=== PATIENT | female | born 1965 | race Caucasian/White ===

== ENCOUNTER → 2018-11-30 | Outpatient (CLI) | payer OTHER ==
--- NOTE | 2018-11-30 18:22 | Diagnostic Imaging Report ---
EXAMINATION: Chest (PA and lateral). CLINICAL INDICATION: 53-year-old female, cough for three weeks. COMPARISON: None. FINDINGS: Heart size and mediastinal contours are unremarkable. There is no identified pneumothorax. There is no pleural effusion. There is no focal airspace consolidation. IMPRESSION: No identified acute cardiopulmonary abnormality. Dictated by: Dictated on workstation # [id number]
== END ==
LOC: RAD FS 11:30
PROVIDERS: ATTEND Nurse Practitioner Family
DX: R05 Cough (principal)
CPT/HCPCS: 71046

== ENCOUNTER 2019-03-14 06:59 | Day surgery (SDC) | payer OTHER ==
[~2019-03-14] VITALS: Ht 167 cm; Wt 100.9 kg
[2019-03-14] VITALS (10 sets, daily range): BP systolic 102–135; BP diastolic 46–80
[2019-03-14 07:38] LABS: ABSOLUTE RETIC # 80 10e9/L (24-90); BASOPHILS % (AUTO) 0 % (0-10); EOSINOPHILS # (AUTO) 0.2 10^3/uL (0.0-0.3); EOSINOPHILS % (AUTO) 1 % (0-10); HEMATOCRIT 41 % (35-52); HEMOGLOBIN 13.4 G/DL (11.5-16.0); LYMPHOCYTES % (AUTO) 17 % (12-44); MEAN CORPUSCULAR HEMOGLOBIN 29 PG (25-34); MEAN CORPUSCULAR HGB CONC 33 G/DL (32-36); MEAN CORPUSCULAR VOLUME 90 FL (80-99); MEAN PLATELET VOLUME 9.5 FL (7.4-10.4); MONOCYTES % (AUTO) 8 % (0-12); NEUTROPHILS # (AUTO) 8.5 X 10^3 (1.8-7.8); NEUTROPHILS % (AUTO) 73 % (42-75); PLATELET COUNT 492 10^3/uL (130-400); RED CELL DISTRIBUTION WIDTH 13.7 % (10.0-14.5); RETICULOCYTE % 1.76 % (0.50-2.40); WHITE BLOOD COUNT 11.6 10^3/uL (4.3-11.0)
[2019-03-14 07:39] LABS: SMEAR SCAN COMMENT NO
[2019-03-14 07:53] LABS: INR 0.9 (0.8-1.4); PROTHROMBIN TIME PATIENT 12.7 SEC (12.2-14.7)
[2019-03-14] MEDS ORDERED: ROSU10TA28 PO (07:57)
[2019-03-14] MEDS ORDERED: DILT120T11 PO (07:57)
[2019-03-14] MEDS ORDERED: UBID200C16 PO (07:57)
[2019-03-14] MEDS ORDERED: ISOS20TA73 PO (07:57)
[2019-03-14] MEDS ORDERED: CHOL200041 PO (07:57)
[2019-03-14] MEDS ORDERED: KRIL1CAP18 PO (07:57)
[2019-03-14] MEDS ORDERED: MAGN250T13 PO (07:57)
[2019-03-14] MEDS ORDERED: PANT40TA3 PO (07:57)
[2019-03-14] MEDS ORDERED: MULT-878 PO (07:57)
[2019-03-14] MEDS ORDERED: VIT1CAPS49 PO (08:00)
[2019-03-14] MEDS ORDERED: ASCO1TAB39 PO (08:01)
[2019-03-14] MEDS ORDERED: NS IV 1000 ML 1,000 ML IV STA (08:07)
[2019-03-14] MEDS ORDERED: LIDOCAINE 1% INJ 20 ML 20 ML VIAL INJ ONE (08:15)
[2019-03-14] MEDS ORDERED: fentaNYL INJECTION 100 MCG/2 ML AMP IVP ONE (08:15)
[2019-03-14] MEDS ORDERED: MIDAZOLAM 2 MG/2 ML (VERSED) VIAL IVP ONE (08:15)
[2019-03-14 08:25] LABS: NEUTROPHILS % (MANUAL) 68 %
[2019-03-14 08:26] LABS: EOSINOPHILS % (MANUAL) 1 %; LYMPHOCYTES % (MANUAL) 22 %; MONOCYTES % (MANUAL) 9 %; RBC MORPH NORMAL; TOXIC GRANULATION/VACUOLAZATIO 3+
--- NOTE | 2019-03-14 10:07 | Pre-Op Note & Conscious Sedat ---
Pre-Operative Progress Note H&P Reviewed The H&P was reviewed, patient examined and no changes noted. Date H&P Reviewed: Mar 14, 2019 Time H&P Reviewed: 08:00 Pre-Op Diagnosis: elevated platelets Conscious Sedation Pre-Proced Time 08:00 ASA Score 2 For ASA 3 and 4: Consider anesthesia and medical clearance. Also, for patients with a history of failed moderate sedation consider anesthesia. Airway Lungs Heart ASA score ASA 1: a normal healthy patient ASA 2: a patient with a mild systemic disease (mid diabetes, controlled hypertension, obesity ASA 3: a patient with a severe systemic disease that limits activity (angina, COPD, prior Myocardial infarction) ASA 4: a patient with an incapacitating disease that is a constant threat to life (CHF, renal failure) ASA 5: a moribund patient not expected to survive 24 hrs. (ruptured aneurysm) ASA 6: a declared brain- patient whose organs are being harvested. For emergent operations, add the letter E after the classification Mallampati Classification Grade 2 Sedation Plan Analgesia, Amnesia, Plan communicated to team members, Discussed options with p atient/fam, Discussed risks with patient/fam The patient is an appropriate candidate to undergo the planned procedure, sedation, and anesthesia. The patient immediately re-assessed prior to indication. ENRIQUE POWER MD Mar 14, 2019 10:07 POS
--- NOTE | 2019-03-14 10:11 | Diagnostic Imaging Report ---
INDICATION: Elevated platelet count. FINDINGS: Patient was brought to the CT suite, placed on the table in the prone position. Axial imaging through the pelvis was performed to evaluate appropriate entry site. The procedure was performed utilizing conscious sedation with radiology nursing and constant patient monitoring. Patient was administered a total of 1 mg of Versed intravenously and 100 mcg of fentanyl intravenously. Total procedure time was 7 minutes. The skin of the posterior pelvis was prepped and draped in the usual sterile fashion. Small amount of 1% lidocaine was utilized for local anesthesia. Bone marrow biopsy needle was advanced and placed with its tip against the posterior cortex of the right iliac bone. The needle was advanced through the cortex utilizing the bone marrow drill. Two bone marrow aspirates were then obtained. Next, the bone marrow drill was utilized to obtain a core biopsy of the bone marrow. Needle was removed and hemostasis was obtained using manual compression. Patient tolerated the procedure well and left the department in stable condition. IMPRESSION: Successful CT-guided bone marrow aspiration and biopsy, utilizing conscious sedation. Dictated by: Dictated on workstation # [id number]
[2019-03-14] MEDS ORDERED: HYDROcodone/APAP 5 MG/325 MG (LORTAB) TAB PO PRN (10:15)
[2019-03-14] MEDS ORDERED: MIDAZOLAM 2 MG/2 ML (VERSED) VIAL ONE (10:19)
--- OUTSIDE RECORDS SUMMARY | 2019-04-08 19:15 | XMS REPORT | Continuity of Care Document ---
Author Organization Unknown Address Unknown Phone Unavailable Allergies Active Description Code Type Severity Reaction Onset Reported/Identified Relationship to Patient Clinical Status Yes amlodipine [id number] Drug Allerg y Severe N/A 03/14/2019 Yes No Known Drug Allergies [id number] Drug Allergy Unknown N/A 03/14/2019 Medications There is no data. Problems Date Dx Coded Attending Type Code Diagnosis Diagnosed By 12/27/2018 PEGGY DIXON [employer] SAL[employer] REPRESENTATIVE Ot R0 5 COUGH 02/22/2019 PEGGY DIXON APRN Ot R0 5 COUGH 02/28/2019 AAKASH ARRIETA MD Ot D47.3 ESSENTIAL (HEMORRHAGIC) THROMBOCYTHEMIA 02/28/2019 AAKASH ARRIETA MD Ot E78.00 PURE HYPERCHOLESTEROLEMIA, UNSPECIFIED 02/28/2019 AAKASH ARRIETA MD Ot I10 ESSENTIAL (PRIMARY) HYPERTENSION 02/28/2019 AAKASH ARRIETA MD Ot R79.89 OTHER SPECIFIED ABNORMAL FINDINGS OF BLO Procedures There is no data. Results Test Result Range CBC - 11/30/18 11:38 WHITE BLOOD CELL COUNT 13.0 Thousand/uL 3.8-10.8 RED BLOOD CELL COUNT 4.87 Million/uL 3.8 0-5.10 HEMOGLOBIN 14.6 g/dL 11.7-15.5 HEMATOCRIT 44.3 % 35.0-45.0 MCV 91.0 fL 80.0-100.0 MCH 30.0 pg 27.0-33.0 MCHC 33.0 g/dL 32.0-36.0 RDW 12.8 % 11.0-15.0 PLATELET COUNT 543 Thousand/uL 140-400 MPV 9.7 fL 7.5-12.5 ABSOLUTE NEUTROPHILS 9802 cells/uL 1500- 7800 ABSOLUTE LYMPHOCYTES 2054 cells/uL 850-3 900 ABSOLUTE MONOCYTES 923 cells/uL 200-950 ABSOLUTE EOSINOPHILS 182 cells/uL 15-500 ABSOLUTE BASOPHILS 39 cells/uL 0-200 NEUTROPHILS 75.4 % NRG LYMPHOCYTES 15.8 % NRG MONOCYTES 7.1 % NRG EOSINOPHILS 1.4 % NRG BASOPHILS 0.3 % NRG CBC w/MANUAL DIFF - 12/25/18 13:13 WHITE BLOOD CELL COUNT 7.1 Thousand/uL 3 .8-10.8 RED BLOOD CELL COUNT 4.68 Million/uL 3.8 0-5.10 HEMOGLOBIN 13.8 g/dL 11.7-15.5 HEMATOCRIT 42.7 % 35.0-45.0 MCV 91.2 fL 80.0-100.0 MCH 29.5 pg 27.0-33.0 MCHC 32.3 g/dL 32.0-36.0 RDW 13.1 % 11.0-15.0 PLATELET COUNT 604 Thousand/uL 140-400 MPV 9.7 fL 7.5-12.5 ABSOLUTE NEUTROPHILS 4004 cells/uL 1500- 7800 ABSOLUTE MONOCYTES 561 cells/uL 200-950 ABSOLUTE EOSINOPHILS 213 cells/uL 15-500 ABSOLUTE BASOPHILS 71 cells/uL 0-200 NEUTROPHILS 56.4 % NRG LYMPHOCYTES 27.7 % NRG MONOCYTES 7.9 % NRG EOSINOPHILS 3.0 % NRG BASOPHILS 1.0 % NRG ABSOLUTE BAND NEUTROPHILS 284 cells/uL 0 -750 ABSOLUTE LYMPHOCYTES 1967 cells/uL 850-3 900 BAND NEUTROPHILS 4.0 % NRG PLATELET ESTIMATION INCREASED ADEQUATE Blood CBC with ordered manual differenti al panel - 03/14/19 07:25 Blood leukocytes automated count (number/volume) 11.6 10*3/uL 4.3-11.0 Blood erythrocytes automated count (number/volume) 4.56 10*6/uL 4.35-5.85 Venous blood hemoglobin measurement (mass/volume) 13.4 g/dL 11.5-16.0 Blood hematocrit (volume fraction) 41 % 35-52 Automated erythrocyte mean corpuscular volume 90 [ foz_us] 80-99 Automated erythrocyte mean corpuscular h emoglobin (mass per erythrocyte) 29 pg 25-34 Automated erythrocyte mean corpuscular h emoglobin concentration measurement (mass/volume) 33 g/dL 32-36 Automated erythrocyte distribution width ratio 13. 7 % 10.0- 14.5 Automated blood platelet count (count/volume) 492 10*3/uL 130-400 Automated blood platelet mean volume measurement 9.5 [foz_us] 7.4-10.4 Automated blood neutrophils/100 leukocytes 73 % 42-75 Automated blood lymphocytes/100 leukocytes 17 % 12-44 Blood monocytes/100 leukocytes 9 % NRG Automated blood eosinophils/100 leukocytes 1 % 0-10 Automated blood basophils/100 leukocytes 0 % 0-10 Blood neutrophils automated count (number/volume) 8.5 10*3 1.8-7.8 Blood lymphocytes automated count (number/volume) 2.0 10*3 1.0-4.0 Blood monocytes automated count (number/volume) 1. 0 10*3 0.0-1.0 Automated eosinophil count 0.2 10*3/uL 0 .0-0.3 Automated blood basophil count (count/volume) 0.0 10*3/uL 0.0-0.1 Manual blood segmented neutrophils/100 leukocytes 68 % NRG Manual blood lymphocytes/100 leukocytes 22 % NRG Manual eosinophils/100 leukocytes in nose 1 % NRG Blood erythrocyte morphology finding identification NORMAL NRG Blood toxic granules detection by light microscopy 3+ NRG Blood blood smear finding identification by light micr oscopy NO NRG Automated reticulocyte percentage - 1207/28 07:25 Blood reticulocytes count (number/volume) 80 10*9/ L 24-90 Blood reticulocytes/100 erythrocytes 1.76 % 0.50-2.40 PT panel in platelet poor plasma by coag ulation assay - 03/14/19 07:25 Prothrombin time (PT) in platelet poor plasma by coagu lation assay 12.7 s 12.2-14.7 INR in platelet poor plasma or blood by coagulation as say 0.9 0.8-1.4 Activated partial thromboplastin time (a PTT) in platelet poor plasma bycoagulation assay - 03/14/19 07:25 Activated partial thromboplastin time (a PTT) in platelet poor plasma bycoagulation assay 32 s 24-35 Encounters ACCT No. Visit Date/Time Discharge Status Pt. Type Provider Facility Loc./Unit Complaint [id number] 11/30/2018 09:40:00 11/30/2018 23:59: 59 CLS Outpatient PEGGY DIXON [facility] [id number] 12/25/2018 13:40:00 Document Registration [id number] 11/30/2018 09:40:00 Document Registration [id number] 03/29/2019 13:17:00 019 23:59:59 CLS Outpatient MEENAKSHI CAMEJO, AAKASH [facility] ONC [id number] 03/14/2019 06:59:00 019 12:10:00 DIS Outpatient MEENAKSHI CAMEJO, AAKASH [facility] RAD ELEVATED PLATELET COUNT [id number] 11/30/2018 11:30:00 019 23:59:59 CLS Outpatient PEGGY DIXON APRN [facility] RAD FS R05
== END 2019-03-14 12:10 | disposition home or self-care (01) ==
LOC: RAD 06:59 → SDC 10:07 → RAD 12:10
PROVIDERS: ATTEND Internal Medicine Hematology & Oncology
DX: D47.3 Essential (hemorrhagic) thrombocythemia (principal); M19.90 Unspecified osteoarthritis, unspecified site; I10 Essential (primary) hypertension; Z79.899 Other long term (current) drug therapy; Z88.8 Allergy status to other drugs, medicaments and biological substances; Z90.89 Acquired absence of other organs; Z90.49 Acquired absence of other specified parts of digestive tract; Z90.10 Acquired absence of unspecified breast and nipple; Z87.891 Personal history of nicotine dependence; Z80.3 Family history of malignant neoplasm of breast; Z82.49 Family history of ischemic heart disease and other diseases of the circulatory system; Z83.3 Family history of diabetes mellitus; Z80.6 Family history of leukemia
CPT/HCPCS: 36415; 38222; 77012; 85007; 85027; 85045; 85610; 85730; 88184; 88185; 88305; 88311; 88313; 99156

== ENCOUNTER 2019-03-29 13:17 | Outpatient (RCR) | payer OTHER ==
[2019-02-22 14:46] LABS: ABSOLUTE RETIC # 92 10e9/L (24-90); BASOPHILS % (AUTO) 0 % (0-10); EOSINOPHILS # (AUTO) 0.1 10^3/uL (0.0-0.3); EOSINOPHILS % (AUTO) 1 % (0-10); HEMATOCRIT 42 % (35-52); HEMOGLOBIN 13.9 G/DL (11.5-16.0); LYMPHOCYTES # (AUTO) 2.4 X 10^3 (1.0-4.0); LYMPHOCYTES % (AUTO) 26 % (12-44); MEAN CORPUSCULAR HEMOGLOBIN 29 PG (25-34); MEAN CORPUSCULAR HGB CONC 33 G/DL (32-36); MEAN CORPUSCULAR VOLUME 89 FL (80-99); MEAN PLATELET VOLUME 9.3 FL (7.4-10.4); MONOCYTES # (AUTO) 0.7 X 10^3 (0.0-1.0); MONOCYTES % (AUTO) 7 % (0-12); NEUTROPHILS # (AUTO) 6.1 X 10^3 (1.8-7.8); NEUTROPHILS % (AUTO) 65 % (42-75); PLATELET COUNT 527 10^3/uL (130-400); RED CELL DISTRIBUTION WIDTH 14.5 % (10.0-14.5); RETICULOCYTE % 1.94 % (0.50-2.40); WHITE BLOOD COUNT 9.3 10^3/uL (4.3-11.0)
[2019-02-22 14:58] LABS: INR 0.9 (0.8-1.4); PROTHROMBIN TIME PATIENT 12.7 SEC (12.2-14.7)
[2019-02-22 15:01] LABS: URIC ACID 7.4 MG/DL (2.6-7.2)
[2019-02-22 15:17] LABS: LYMPHOCYTES % (MANUAL) 27 %; MONOCYTES % (MANUAL) 4 %; NEUTROPHILS % (MANUAL) 69 %; POIKILOCYTOSIS SLIGHT; SPHEROCYTES SLIGHT
[2019-02-22 15:18] LABS: TOXIC GRANULATION/VACUOLAZATIO 2+
[~2019-03-29 13:17] MED LIST: ASCO1TAB39 PO; CHOL200041 PO; DILT120T11 PO; ISOS20TA73 PO; KRIL1CAP18 PO; MAGN250T13 PO; MULT-878 PO; PANT40TA3 PO; ROSU10TA28 PO; UBID200C16 PO; VIT1CAPS49 PO
== END 2019-05-23 | disposition home or self-care (01) ==
LOC: ONC 13:17
PROVIDERS: ATTEND Internal Medicine Hematology & Oncology
DX: D47.3 Essential (hemorrhagic) thrombocythemia (principal); I10 Essential (primary) hypertension; E78.00 Pure hypercholesterolemia, unspecified; R79.89 Other specified abnormal findings of blood chemistry
CPT/HCPCS: 36415; 81206; 81270; 82668; 82728; 83540; 83615; 84550; 85007; 85027; 85045; 85610; 85730; 99213; 99214

== ENCOUNTER 2019-06-18 11:29 | Emergency (ER) | payer OTHER ==
[~2019-06-18] VITALS: Ht 160 cm; Wt 104.0 kg
[2019-06-18 11:56] LABS: BASOPHILS % (AUTO) 0 % (0-10); EOSINOPHILS # (AUTO) 0.2 10^3/uL (0.0-0.3); EOSINOPHILS % (AUTO) 2 % (0-10); HEMATOCRIT 38 % (35-52); HEMOGLOBIN 12.5 G/DL (11.5-16.0); LYMPHOCYTES # (AUTO) 1.7 X 10^3 (1.0-4.0); LYMPHOCYTES % (AUTO) 18 % (12-44); MEAN CORPUSCULAR HEMOGLOBIN 30 PG (25-34); MEAN CORPUSCULAR HGB CONC 33 G/DL (32-36); MEAN CORPUSCULAR VOLUME 91 FL (80-99); MEAN PLATELET VOLUME 9.3 FL (7.4-10.4); MONOCYTES # (AUTO) 0.7 X 10^3 (0.0-1.0); MONOCYTES % (AUTO) 7 % (0-12); NEUTROPHILS # (AUTO) 6.9 X 10^3 (1.8-7.8); NEUTROPHILS % (AUTO) 73 % (42-75); PLATELET COUNT 408 10^3/uL (130-400); WHITE BLOOD COUNT 9.5 10^3/uL (4.3-11.0)
[2019-06-18 12:11] LABS: FIBRIN DEGRADATION PRODUCTS <= 0.27 UG/ML (0.00-0.49); INR 0.9 (0.8-1.4); PARTIAL THROMBOPLASTIN TIME 29 SEC (24-35); PROTHROMBIN TIME PATIENT 12.8 SEC (12.2-14.7)
[2019-06-18 12:17] LABS: ALANINE AMINOTRANSFERASE 29 U/L (0-55); ALBUMIN 4.3 GM/DL (3.2-4.5); ALKALINE PHOSPHATASE 78 U/L (40-136); BILIRUBIN,TOTAL 0.2 MG/DL (0.1-1.0); BUN/CREATININE RATIO 26; CARBON DIOXIDE 25 MMOL/L (21-32); CHLORIDE 105 MMOL/L (98-107); CREATININE SERUM 0.77 MG/DL (0.60-1.30); GFR ESTIMATED > 60; GLUCOSE 132 MG/DL (70-105); POTASSIUM 4.1 MMOL/L (3.6-5.0); SODIUM 138 MMOL/L (135-145); TOTAL PROTEIN 6.9 GM/DL (6.4-8.2)
--- NOTE | 2019-06-18 12:40 | Diagnostic Imaging Report ---
INDICATION: Increasing right thigh pain and tightness. 3 month post bone biopsy TECHNIQUE: 2 views of the right hip. CORRELATION STUDY: None FINDINGS: Images of the hip demonstrate no evidence for acute fracture. Alignment is anatomic. The femoral head acetabular relationship is unremarkable. The bony trabecular pattern is intact. IMPRESSION: 1. Negative for acute bony abnormality of the right hip. Dictated by: Dictated on workstation # [id number]
--- NOTE | 2019-06-18 13:39 | Diagnostic Imaging Report ---
PROCEDURE: US right lower extremity venous. TECHNIQUE: Multiple real-time grayscale images were obtained over the right lower extremity in various projections. Additional spectral analysis and color Doppler duplex images were also obtained. INDICATION: Right leg pain. FINDINGS: There is no evidence of right lower extremity DVT. Right lower extremity deep venous system shows normal compressibility with normal response to augmentation and Valsalva. No fluid collection or mass is detected. IMPRESSION: No evidence of right lower extremity DVT. Dictated by: Dictated on workstation # [id number]
--- NOTE | 2019-06-18 13:42 | ED Lower Extremity ---
General Chief Complaint: Lower Extremity Stated Complaint: LEG PAIN Nursing Triage Note: ARRIVED VIA EMS FROM WORK WITH COPLAINTS OF LEFT LEG PAIN STARTING TODAY. 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 Nursing Sepsis Screen: No Definite Risk Source: patient Exam Limitations: no limitations History of Present Illness Date Seen by Provider: Jun 18, 2019 Time Seen by Provider: 11:36 Initial Comments 53-year-old female who was brought to the emergency room by [facility] for right inner thigh pain that started last night. She was at work today where she is an employee for [employer] [facility] [facility] [employer] and started having excruciating right inner thigh pain. She reports that the pain did start last night but increased throughout the day. She is being evaluated for elevated platelet counts by Dr. Corbett. She received 200 g of fentanyl and 25 mg of Phenergan IV in route which has controlled her pain. She also reports that her arthritis has been flaring up and her meloxicam is no longer working. There is no redness, swelling, deformity noted. Onset: yesterday Pain/Injury Location: right thigh Method of Injury: unknown Modifying Factors: Worse With Movement Allergies and Home Medications Allergies Coded Allergies: amlodipine (Verified Allergy, Severe, 03/14/19) bronchiospasms Home Medications Ascorbic Acid/Vitamin E/Biotin 1 Each Tab.chew, 1 EACH PO DAILY, (Reported) Cholecalciferol (Vitamin D3) 2,000 Unit Tablet, 125 MCG PO DAILY, (Reported) Diltiazem HCl 120 Mg Tablet, 240 MG PO DAILY, (Reported) Hydrocodone/Acetaminophen 1 Each Tablet, 1 TAB PO Q4-6HR Prescribed by: RISHABH RAND on 06/18/19 1356 Isosorbide Mononitrate 20 Mg Tablet, 30 MG PO DAILY, (Reported) Krill/Om-3/Dha/Epa/Phospho/Ast 1 Each Capsule, 1 EACH PO DAILY, (Reported) Magnesium Oxide 250 Mg Tablet, 250 MG PO DAILY, (Reported) Multivitamins-Min/FA/Ginkgo 1 Each Tablet, 1 EACH PO DAILY, (Reported) Pantoprazole Sodium 40 Mg Tablet.dr, 40 MG PO DAILY, (Reported) Rosuvastatin Calcium 10 Mg Tablet, 10 MG PO DAILY, (Reported) Ubidecarenone 200 Mg Capsule, 200 MG PO DAILY, (Reported) Vit E/Zn/Lut/Lyco/Bilber/Hb261 1 Each Capsule, 400 UNITS PO DAILY, (Reported) Patient Home Medication List Home Medication List Reviewed: Yes Review of Systems Constitutional: see HPI; No chills, No fever Musculoskeletal: see HPI, muscle pain (right inner thigh pain) All Other Systems Reviewed Negative Unless Noted: Yes Past Wrgcgcb-Jitwyv-Qgsagz Hx Past Med/Social Hx: Reviewed Nursing Past Med/Soc Hx Patient Social History Alcohol Use: Rarely Uses Recreational Drug Use: No Smoking Status: Former Smoker Recent Foreign Travel: No Contact w/Someone Who Travel: No Recent Infectious Disease Expo: No Recent Hopitalizations: No Past Medical History Surgeries: Yes (UTERINE ABLASION, LUMPECTOMY) Gallbladder Respiratory: No Cardiac: Yes Hypertension Neurological: Yes (BELLS PALSY) Gastrointestinal: No Musculoskeletal: Yes Rheumatoid Arthritis Endocrine: No Cancer: No Psychosocial: No Blood Disorders: Yes (HIGH PLATELETS) Family Medical History Reviewed Nursing Family Hx Physical Exam Vital Signs Vital Signs - First Documented 06/18/19 11:29 Temp 37.0 Pulse 87 Resp 16 B/P (MAP) 150/79 (102) Pulse Ox 96 O2 Delivery Room Air Capillary Refill : Less Than 3 Seconds Height, Weight, BMI Height: '" Weight: lbs. oz. kg; 40.00 BMI Method: General Appearance: WD/WN, no apparent distress Cardiovascular: normal peripheral pulses, regular rate, rhythm, no edema, no gallop, no JVD, no murmur Respiratory: chest non-tender, lungs clear, normal breath sounds, no respiratory distress, no accessory muscle use Gastrointestinal: normal bowel sounds, non tender, soft, no organomegaly, no pulsatile mass Legs: right leg pain, right leg soft tissue tenderness, right leg other (to the right inner thigh) Neurologic/Tendon: normal sensation, normal motor functions, normal tendon functions, responds to pain, no evidence tendon injury, other (normal distal pulses present and capillary refill normal.) Neurologic/Psychiatric: alert, normal mood/affect, oriented x 3 Skin: normal color, warm/dry Progress/Results/Core Measures Results/Orders Lab Results Laboratory Tests Test 06/18/19 11:48 Range/Units White Blood Count 9.5 4.3-11.0 10^3/uL Red Blood Count 4.15 L 4.35-5.85 10^6/uL Hemoglobin 12.5 11.5-16.0 G/DL Hematocrit 38 35-52 % Mean Corpuscular Volume 91 80-99 FL Mean Corpuscular Hemoglobin 30 25-34 PG Mean Corpuscular Hemoglobin Concent 33 32-36 G/DL Red Cell Distribution Width 14.0 10.0-14.5 % Platelet Count 408 H 130-400 10^3/uL Mean Platelet Volume 9.3 7.4-10.4 FL Neutrophils (%) (Auto) 73 42-75 % Lymphocytes (%) (Auto) 18 12-44 % Monocytes (%) (Auto) 7 0-12 % Eosinophils (%) (Auto) 2 0-10 % Basophils (%) (Auto) 0 0-10 % Neutrophils # (Auto) 6.9 1.8-7.8 X 10^3 Lymphocytes # (Auto) 1.7 1.0-4.0 X 10^3 Monocytes # (Auto) 0.7 0.0-1.0 X 10^3 Eosinophils # (Auto) 0.2 0.0-0.3 10^3/uL Basophils # (Auto) 0.0 0.0-0.1 10^3/uL Prothrombin Time 12.8 12.2-14.7 SEC INR Comment 0.9 0.8-1.4 Activated Partial Thromboplast Time 29 24-35 SEC D-Dimer <= 0.27 0.00-0.49 UG/ML Sodium Level 138 135-145 MMOL/L Potassium Level 4.1 3.6-5.0 MMOL/L Chloride Level 105 98-107 MMOL/L Carbon Dioxide Level 25 21-32 MMOL/L Anion Gap 8 5-14 MMOL/L Blood Urea Nitrogen 20 H 7-18 MG/DL Creatinine 0.77 0.60-1.30 MG/DL Estimat Glomerular Filtration Rate > 60 BUN/Creatinine Ratio 26 Glucose Level 132 H 70-105 MG/DL Calcium Level 9.0 8.5-10.1 MG/DL Corrected Calcium 8.8 8.5-10.1 MG/DL Total Bilirubin 0.2 0.1-1.0 MG/DL Aspartate Amino Transf (AST/SGOT) 21 5-34 U/L Alanine Aminotransferase (ALT/SGPT) 29 0-55 U/L Alkaline Phosphatase 78 40-136 U/L Total Protein 6.9 6.4-8.2 GM/DL Albumin 4.3 3.2-4.5 GM/DL My Orders Orders - RISHABH RAND Comprehensive Metabolic Panel (06/18/19 11:35) Cbc With Automated Diff (06/18/19 11:35) Protime With Inr (06/18/19 11:35) Partial Thromboplastin Time (06/18/19 11:35) Fibrin Degradation Products (06/18/19 11:35) Us Venous Lower Ext Rt (06/18/19 11:35) Ed Iv/Invasive Line Start (06/18/19 11:35) Monitor-Rhythm Ecg Trace Only (06/18/19 11:35) Hip, Right, 2 Views (06/18/19 ) Vital Signs/I&O 06/18/19 11:29 Temp 37.0 Pulse 87 Resp 16 B/P (MAP) 150/79 (102) Pulse Ox 96 O2 Delivery Room Air Blood Pressure Mean: 102 Progress Progress Note : Time: 13:52 Progress Note I have seen and evaluated the patient. I've informed her of her laboratory and imaging studies. She agrees with plan of care, plans for discharge, return precautions were given. Departure Impression Primary Impression: Acute thigh pain Additional Impression: Arthritis Disposition: 01 HOME, SELF-CARE Condition: Stable/Unchanged Departure-Patient Inst. Decision time for Depature: 13:52 Referrals: APRIL DIXON APRN (PCP) Primary Care Physician Patient Instructions: Acute Pain, Adult Add. Discharge Instructions: You may alternate ice and heat to the sore areas. Tylenol Motrin as needed for pain relief. For pain unrelieved by Tylenol Motrin you may use the hydrocodone as prescribed. Call today to schedule a close follow-up appointment with April Dixon at [facility]. Return back to the emergency room for worsening symptoms or concerns as needed. All discharge instructions reviewed with patient and/or family. Voiced understanding. Scripts Hydrocodone/Acetaminophen (Hydrocodone/Acetaminophen 5 MG/325 MG TAB) 1 Each Tablet 1 TAB PO Q4-6HR for Pain MDD 10 TABS for 7 Days, #20 TAB Prov: RISHABH RAND 06/18/19 RISHABH RAND Jun 18, 2019 13:42
[2019-06-18] MEDS ORDERED: HYDR-4226 PO (13:56)
[2019-06-18 14:05] VITALS: BP 107/65
--- OUTSIDE RECORDS SUMMARY | 2019-06-20 21:02 | XMS REPORT | Continuity of Care Document ---
Author Organization Unknown Address Unknown Phone Unavailable Allergies Active Description Code Type Severity Reaction Onset Reported/Identified Relationship to Patient Clinical Status Yes amlodipine [id number] Drug Allerg y Severe N/A 03/14/2019 Yes No Known Drug Allergies [id number] Drug Allergy Unknown N/A 03/14/2019 Medications There is no data. Problems Date Dx Coded Attending Type Code Diagnosis Diagnosed By 12/27/2018 PEGGY DIXON APRN Ot R0 5 COUGH 02/22/2019 PEGGY DIXON APRN Ot R0 5 COUGH 02/28/2019 AAKASH ARRIETA MD, Ot D47.3 ESSENTIAL (HEMORRHAGIC) THROMBOCYTHEMIA 02/28/2019 AAKASH ARRIETA MD Ot E78.00 PURE HYPERCHOLESTEROLEMIA, UNSPECIFIED 02/28/2019 AAKASH ARRIETA MD Ot I10 ESSENTIAL (PRIMARY) HYPERTENSION 02/28/2019 AAKASH ARRIETA MD Ot R79.89 OTHER SPECIFIED ABNORMAL FINDINGS OF BLO 03/14/2019 AAKASH ARRIETA MD, Ot D47.3 ESSENTIAL (HEMORRHAGIC) THROMBOCYTHEMIA 03/14/2019 AAKASH ARRIETA MD Ot I10 ESSENTIAL (PRIMARY) HYPERTENSION 03/14/2019 AAKASH ARRIETA MD Ot M19.90 UNSPECIFIED OSTEOARTHRITIS, UNSPECIFIED 03/14/2019 AAKASH ARRIETA MD Ot Z79.899 OTHER SHOE FITTER (CURRENT) DRUG THERAPY 03/14/2019 AAKASH ARRIETA MD Ot Z80.3 FAMILY HISTORY OF MALIGNANT NEOPLASM OF 03/14/2019 AAKASH ARRIETA MD, Ot Z80.6 FAMILY HISTORY OF LEUKEMIA 03/14/2019 AAKASH ARRIETA MD, Ot Z82.49 FAMILY HX OF ISCHEM HEART DIS AND OTH DI 03/14/2019 AAKASH ARRIETA MD, Ot Z83.3 FAMILY HISTORY OF DIABETES MELLITUS 03/14/2019 AAKASH ARRIETA MD, Ot Z87.891 PERSONAL HISTORY OF NICOTINE DEPENDENCE 03/14/2019 AAKASH ARRIETA MD, Ot Z88.8 ALLERGY STATUS TO OTH DRUG/MEDS/BIOL SUB 03/14/2019 AAKASH ARRIETA MD, Ot Z90.10 ACQUIRED ABSENCE OF UNSPECIFIED BREAST A 03/14/2019 AAKASH ARRIETA MD Ot Z90.49 ACQUIRED ABSENCE OF OTHER SPECIFIED PART 03/14/2019 AAKASH ARRIETA MD Ot Z90.89 ACQUIRED ABSENCE OF OTHER ORGANS 04/12/2019 AAKASH ARRIETA MD, Ot D47.3 ESSENTIAL (HEMORRHAGIC) THROMBOCYTHEMIA 04/12/2019 AAKASH ARRIETA MD Ot E78.00 PURE HYPERCHOLESTEROLEMIA, UNSPECIFIED 04/12/2019 AAKASH ARRIETA MD Ot I10 ESSENTIAL (PRIMARY) HYPERTENSION 04/12/2019 AAKASH ARRIETA MD Ot R79.89 OTHER SPECIFIED ABNORMAL FINDINGS OF BLO 05/23/2019 AAKASH ARRIETA MD Ot D47.3 ESSENTIAL (HEMORRHAGIC) THROMBOCYTHEMIA 05/23/2019 AAKASH ARRIETA MD Ot E78.00 PURE HYPERCHOLESTEROLEMIA, UNSPECIFIED 05/23/2019 AAKASH ARRIETA MD Ot I10 ESSENTIAL (PRIMARY) HYPERTENSION 05/23/2019 AAKASH ARRIETA MD Ot R79.89 OTHER SPECIFIED ABNORMAL FINDINGS OF BLO 05/24/2019 AAKASH ARRIETA MD, Ot D47.3 ESSENTIAL (HEMORRHAGIC) THROMBOCYTHEMIA 05/24/2019 AAKASH ARRIETA MD Ot E78.00 PURE HYPERCHOLESTEROLEMIA, UNSPECIFIED 05/24/2019 AAKASH ARRIETA MD Ot I10 ESSENTIAL (PRIMARY) HYPERTENSION 05/24/2019 AAKASH ARRIETA MD Ot R79.89 OTHER SPECIFIED [...] oscopy NO NRG Automated reticulocyte percentage - 07/28 07:25 Blood reticulocytes count (number/volume) 80 10*9/ [...] poor plasma bycoagulation assay 32 s 24-35 Complete blood count (CBC) with automate d white blood cell (WBC) differential - 06/18/19 11:48 Blood leukocytes automated count (number/volume) 9.5 10*3/uL 4.3-11.0 Blood erythrocytes automated count (number/volume) 4.15 10*6/uL 4.35-5.85 Venous blood hemoglobin measurement (mass/volume) 12.5 g/dL 11.5-16.0 Blood hematocrit (volume fraction) 38 % 35-52 Automated erythrocyte mean corpuscular volume 91 [ foz_us] 80-99 Automated erythrocyte mean corpuscular h emoglobin (mass per erythrocyte) 30 pg 25-34 Automated erythrocyte mean corpuscular h emoglobin concentration measurement (mass/volume) 33 g/dL 32-36 Automated erythrocyte distribution width ratio 14. 0 % 10.0- 14.5 Automated blood platelet count (count/volume) 408 10*3/uL 130-400 Automated blood platelet mean volume measurement 9.3 [foz_us] 7.4-10.4 Automated blood neutrophils/100 leukocytes 73 % 42-75 Automated blood lymphocytes/100 leukocytes 18 % 12-44 Blood monocytes/100 leukocytes 7 % 0-12 Automated blood eosinophils/100 leukocytes 2 % 0-10 Automated blood basophils/100 leukocytes 0 % 0-10 Blood neutrophils automated count (number/volume) 6.9 10*3 1.8-7.8 Blood lymphocytes automated count (number/volume) 1.7 10*3 1.0-4.0 Blood monocytes automated count (number/volume) 0. 7 10*3 0.0-1.0 Automated eosinophil count 0.2 10*3/uL 0 .0-0.3 Automated blood basophil count (count/volume) 0.0 10*3/uL 0.0-0.1 PT panel in platelet poor plasma by coag ulation assay - 06/18/19 11:48 Prothrombin time (PT) in platelet poor plasma by coagu lation assay 12.8 s 12.2-14.7 INR in platelet poor plasma or blood by coagulation as say 0.9 0.8-1.4 Activated partial thromboplastin time (a PTT) in platelet poor plasma bycoagulation assay - 06/18/19 11:48 Activated partial thromboplastin time (a PTT) in platelet poor plasma bycoagulation assay 29 s 24-35 Fibrin D-dimer FEU measurement in platel et poor plasma (mass/volume) - 06/18/19 11:48 Fibrin D-dimer FEU measurement in platelet poor plasma (mass/volume) <= ug/mL 0.00-0.49 Comprehensive metabolic panel - 06/18/19 11:48 Serum or plasma sodium measurement (moles/volume) 138 mmol/L 135-145 Serum or plasma potassium measurement (moles/volume) 4.1 mmol/L 3.6-5.0 Serum or plasma chloride measurement (moles/volume) 105 mmol/L 98-107 Carbon dioxide 25 mmol/L 21-32 Serum or plasma anion gap determination (moles/volume) 8 mmol/L 5-14 Serum or plasma urea nitrogen measurement (mass/volume ) 20 mg/dL 7-18 Serum or plasma creatinine measurement (mass/volume) 0.77 mg/dL 0.60-1.30 Serum or plasma urea nitrogen/creatinine mass ratio 26 NRG Serum or plasma creatinine measurement w ith calculation of estimated glomerular filtration rate > NRG Serum or plasma glucose measurement (mass/volume) 132 mg/dL 70-105 Serum or plasma calcium measurement (mass/volume) 9.0 mg/dL 8.5-10.1 Serum or plasma total bilirubin measurement (mass/volu me) 0.2 mg/dL 0.1-1.0 Serum or plasma alkaline phosphatase elma surement (enzymatic activity/volume) 78 U/L 40-136 Serum or plasma aspartate aminotransfera se measurement (enzymatic activity/volume) 21 U/L 5-34 Serum or plasma alanine aminotransferase measurement (enzymatic activity/volume) 29 U/L 0-55 Serum or plasma protein measurement (mass/volume) 6.9 g/dL 6.4-8.2 Serum or plasma albumin measurement (mass/volume) 4.3 g/dL 3.2-4.5 CALCIUM CORRECTED 8.8 mg/dL 8.5-10.1 Encounters ACCT No. Visit Date/Time Discharge Status Pt. Type Provider Facility Loc./Unit Complaint [id number] 11/30/2018 09:40:00 11/30/2018 23:59: 59 CLS Outpatient PEGGY DIXON [facility] [id number] 12/25/2018 13:40:00 Document Registration [id number] 11/30/2018 09:40:00 Document Registration [id number] 06/18/2019 11:30:00 020 14:18:00 DIS Emergency RISHABH RAND [facility] ER LEG PAIN [id number] 03/29/2019 13:17:00 020 00:01:00 DIS Outpatient MEENAKSHI CAMEJO, AAKASH [facility] ONC [id number] 03/14/2019 06:59:00 019 12:10:00 DIS Outpatient MEENAKSHI CAMEJO, AAKASH [facility] RAD ELEVATED PLATELET COUNT [id number] 11/30/2018 11:30:00 23:59:59 CLS Outpatient PEGGY DIXON [employer] [facility] RAD FS R05 [id number] 06/19/2019 09:12:[address] Outpatient PEGGY DIXON [employer] [facility] RAD FS RIGHT LEG PAIN
== END 2019-06-18 14:18 | disposition home or self-care (01) ==
LOC: EDUNIT# 11:29 → ER 11:30
DX: M79.651 Pain in right thigh (principal); M19.90 Unspecified osteoarthritis, unspecified site; I10 Essential (primary) hypertension; M06.9 Rheumatoid arthritis, unspecified; Z88.8 Allergy status to other drugs, medicaments and biological substances; Z87.891 Personal history of nicotine dependence
CPT/HCPCS: 36415; 73502; 80053; 85025; 85379; 85610; 85730; 93041

== ENCOUNTER → 2019-06-19 | Outpatient (CLI) | payer OTHER ==
[~2019-06-19] MED LIST changes: +HYDR-4226 PO
--- NOTE | 2019-06-19 09:47 | Diagnostic Imaging Report ---
EXAMINATION: Lumbar spine radiographs, 5 views. COMPARISON: None. HISTORY: 53-year-old female, low back pain extending down the right leg. FINDINGS: There are 5 lumbar-type vertebral bodies. There is no identified pars interarticularis defect. The alignment of the lumbar spine is unremarkable. The lumbar disc heights are well preserved. There are no prominent endplate degenerative changes. There is no identified compression deformity. There are right greater than left facet degenerative changes at L4-L5 and L5-S1. The sacroiliac joints are unremarkable in appearance. Right upper quadrant surgical clips may reflect prior cholecystectomy. IMPRESSION: 1. Right greater than left facet degenerative changes at L4-L5 and L5-S1. Dictated by: Dictated on workstation # [id number]
--- NOTE | 2019-06-19 09:47 | Diagnostic Imaging Report ---
EXAMINATION: Sacroiliac joint radiographs, 3 views. COMPARISON: None. HISTORY: 53-year-old female, lower back pain extending down the right leg. FINDINGS: The right and left sacroiliac joints are unremarkable in appearance. Specifically, there is no joint space loss, osteophyte formation, bone erosion, or ankylosis. IMPRESSION: 1. Unremarkable appearance of the sacroiliac joints. 2. Please see separately dictated lumbar spine radiograph report for findings of the lumbar spine. Dictated by: Dictated on workstation # [id number]
== END ==
LOC: RAD FS 09:12
PROVIDERS: ATTEND Nurse Practitioner Family
DX: M47.817 Spondylosis without myelopathy or radiculopathy, lumbosacral region (principal)
CPT/HCPCS: 72110; 72202

== ENCOUNTER 2019-06-29 13:30 | Outpatient (RCR) | payer OTHER ==
[2019-06-29 13:44] LABS: BASOPHILS % (AUTO) 0 % (0-10); EOSINOPHILS # (AUTO) 0.2 10^3/uL (0.0-0.3); EOSINOPHILS % (AUTO) 3 % (0-10); HEMATOCRIT 40 % (35-52); HEMOGLOBIN 13.2 G/DL (11.5-16.0); LYMPHOCYTES # (AUTO) 2.1 X 10^3 (1.0-4.0); LYMPHOCYTES % (AUTO) 29 % (12-44); MEAN CORPUSCULAR HEMOGLOBIN 30 PG (25-34); MEAN CORPUSCULAR HGB CONC 33 G/DL (32-36); MEAN CORPUSCULAR VOLUME 91 FL (80-99); MEAN PLATELET VOLUME 9.4 FL (7.4-10.4); MONOCYTES # (AUTO) 0.7 X 10^3 (0.0-1.0); MONOCYTES % (AUTO) 9 % (0-12); NEUTROPHILS # (AUTO) 4.4 X 10^3 (1.8-7.8); NEUTROPHILS % (AUTO) 59 % (42-75); PLATELET COUNT 460 10^3/uL (130-400); RED CELL DISTRIBUTION WIDTH 13.8 % (10.0-14.5); WHITE BLOOD COUNT 7.5 10^3/uL (4.3-11.0)
[2019-06-29 14:03] LABS: ALANINE AMINOTRANSFERASE 45 U/L (0-55); ALBUMIN 4.6 GM/DL (3.2-4.5); ALKALINE PHOSPHATASE 86 U/L (40-136); BILIRUBIN,TOTAL 0.2 MG/DL (0.1-1.0); BUN/CREATININE RATIO 22; CALCIUM 9.2 MG/DL (8.5-10.1); CARBON DIOXIDE 23 MMOL/L (21-32); CHLORIDE 103 MMOL/L (98-107); CREATININE SERUM 0.76 MG/DL (0.60-1.30); GFR ESTIMATED > 60; GLUCOSE 97 MG/DL (70-105); POTASSIUM 3.9 MMOL/L (3.6-5.0); SODIUM 138 MMOL/L (135-145); TOTAL PROTEIN 7.5 GM/DL (6.4-8.2)
== END 2019-09-27 | disposition home or self-care (01) ==
LOC: ONC 13:30
PROVIDERS: ATTEND Internal Medicine Hematology & Oncology
DX: D47.3 Essential (hemorrhagic) thrombocythemia (principal); I10 Essential (primary) hypertension; E78.00 Pure hypercholesterolemia, unspecified; R79.89 Other specified abnormal findings of blood chemistry; E78.5 Hyperlipidemia, unspecified; J18.9 Pneumonia, unspecified organism; M19.90 Unspecified osteoarthritis, unspecified site; Z90.49 Acquired absence of other specified parts of digestive tract; Z98.890 Other specified postprocedural states
CPT/HCPCS: 80053; 83615; 85025; G0463; 99213

== ENCOUNTER → 2019-07-26 | Outpatient (CLI) | payer OTHER ==
--- NOTE | 2019-07-26 09:25 | Diagnostic Imaging Report ---
Indication: Pelvic pain AP view pelvis is obtained. FINDINGS: No acute fracture or dislocation is identified. No abnormal lytic or sclerotic focus is seen, and there is no radiopaque foreign body. IMPRESSION: No acute abnormality. Dictated by: Dictated on workstation # [id number]
== END ==
LOC: RAD FS 09:07
PROVIDERS: ATTEND Nurse Practitioner
DX: M53.3 Sacrococcygeal disorders, not elsewhere classified (principal)
CPT/HCPCS: 72170

== ENCOUNTER → 2019-11-02 | Outpatient (CLI) | payer OTHER ==
[~2019-11-02] MED LIST changes: +CATHETER FLUSH 10 ML SYR IV PRN; +HOLD METFORMIN - RECEIVED CONTRAST 20 ML VIAL IV SCH; +IOHEXOL 350 MG/ML 150 ML (OMNIPAQUE 350) VIAL IV ONE; +NS 100 ML (IVPB) BAG IV ONE
[2019-11-02 09:31] LABS: SODIUM 138 MMOL/L (135-145)
[2019-11-02 09:32] LABS: ALANINE AMINOTRANSFERASE 46 U/L (0-55); ALBUMIN 4.5 GM/DL (3.2-4.5); ALKALINE PHOSPHATASE 85 U/L (40-136); BILIRUBIN,TOTAL 0.3 MG/DL (0.1-1.0); BUN/CREATININE RATIO 27; CALCIUM 9.5 MG/DL (8.5-10.1); CARBON DIOXIDE 25 MMOL/L (21-32); CHLORIDE 102 MMOL/L (98-107); CREATININE SERUM 0.64 MG/DL (0.60-1.30); GFR ESTIMATED > 60; GLUCOSE 137 MG/DL (70-105); POTASSIUM 4.5 MMOL/L (3.6-5.0); TOTAL PROTEIN 7.3 GM/DL (6.4-8.2)
--- NOTE | 2019-11-02 10:34 | Diagnostic Imaging Report ---
PROCEDURE: CT angiography of the chest with contrast. TECHNIQUE: Multiple contiguous axial images were obtained through the chest after uneventful bolus administration of intravenous contrast. 3D reconstructed CTA MIP acquisitions were also performed. Auto Exposure Controls were utilized during the CT exam to meet ALARA standards for radiation dose reduction. INDICATION: Bilateral lower extremity edema and shortness of breath. Patient also complains of chest pain for one month. COMPARISON: No prior studies are available for comparison. FINDINGS: Study is somewhat compromised due to respiratory motion. Central and lobar pulmonary arteries are patent. No filling defects are seen to suggest pulmonary emboli. The thoracic aorta is normal in caliber. No dissection is seen. No pericardial or pleural fluid is identified. No pulmonary infiltrates, nodules or masses are seen. Upper abdomen does demonstrate diffuse low density throughout the liver consistent with hepatic steatosis. IMPRESSION: 1. No evidence of pulmonary embolism or thoracic aortic dissection. 2. Hepatic steatosis. Dictated by: Dictated on workstation # [id number]
== END ==
LOC: RAD 08:52
PROVIDERS: ATTEND Nurse Practitioner Family
DX: K76.0 Fatty (change of) liver, not elsewhere classified (principal); R60.0 Localized edema; R06.02 Shortness of breath; R07.9 Chest pain, unspecified
CPT/HCPCS: 36415; 71275; 80053

== ENCOUNTER 2019-11-30 14:19 | Outpatient (RCR) | payer OTHER ==
[~2019-11-30 14:19] MED LIST changes: -CATHETER FLUSH 10 ML SYR IV PRN; -HOLD METFORMIN - RECEIVED CONTRAST 20 ML VIAL IV SCH; -IOHEXOL 350 MG/ML 150 ML (OMNIPAQUE 350) VIAL IV ONE; -NS 100 ML (IVPB) BAG IV ONE; -PANT40TA3 PO; +PANT40TA52 PO
[2019-11-30 14:43] LABS: BASOPHILS % (AUTO) 0 % (0-10); EOSINOPHILS # (AUTO) 0.2 10^3/uL (0.0-0.3); EOSINOPHILS % (AUTO) 2 % (0-10); HEMATOCRIT 40 % (35-52); HEMOGLOBIN 13.3 G/DL (11.5-16.0); LYMPHOCYTES % (AUTO) 18 % (12-44); MEAN CORPUSCULAR HEMOGLOBIN 30 PG (25-34); MEAN CORPUSCULAR HGB CONC 33 G/DL (32-36); MEAN CORPUSCULAR VOLUME 91 FL (80-99); MEAN PLATELET VOLUME 9.8 FL (7.4-10.4); MONOCYTES # (AUTO) 0.7 X 10^3 (0.0-1.0); MONOCYTES % (AUTO) 7 % (0-12); NEUTROPHILS # (AUTO) 8.1 X 10^3 (1.8-7.8); NEUTROPHILS % (AUTO) 74 % (42-75); PLATELET COUNT 396 10^3/uL (130-400)
[2019-11-30 15:00] LABS: ALANINE AMINOTRANSFERASE 50 U/L (0-55); ALBUMIN 4.3 GM/DL (3.2-4.5); ALKALINE PHOSPHATASE 76 U/L (40-136); BILIRUBIN,TOTAL 0.2 MG/DL (0.1-1.0); BUN/CREATININE RATIO 16; CALCIUM 9.2 MG/DL (8.5-10.1); CARBON DIOXIDE 26 MMOL/L (21-32); CHLORIDE 102 MMOL/L (98-107); CREATININE SERUM 0.95 MG/DL (0.60-1.30); GFR ESTIMATED > 60; GLUCOSE 172 MG/DL (70-105); POTASSIUM 3.6 MMOL/L (3.6-5.0); SODIUM 137 MMOL/L (135-145); TOTAL PROTEIN 7.2 GM/DL (6.4-8.2)
== END 2020-01-04 08:43 | disposition home or self-care (01) ==
LOC: ONC 14:19
PROVIDERS: ATTEND Internal Medicine Hematology & Oncology
DX: R79.89 Other specified abnormal findings of blood chemistry (principal); I10 Essential (primary) hypertension; E78.5 Hyperlipidemia, unspecified; J18.9 Pneumonia, unspecified organism; D47.3 Essential (hemorrhagic) thrombocythemia
CPT/HCPCS: 80053; 83615; 85025; G0463; 99213

== ENCOUNTER → 2020-04-16 | Outpatient (CLI) | payer OTHER ==
--- NOTE | 2020-04-16 15:26 | Diagnostic Imaging Report ---
INDICATION: Shortness of breath PA and lateral chest Heart size and pulmonary vascularity are normal. There is increased density in the left lower lateral chest which is probably from breast tissue shadow. There are no effusions or pneumothoraces. IMPRESSION: No acute abnormalities in the chest. Dictated by: Dictated on workstation # [id number]
== END ==
LOC: RAD FS 14:52
PROVIDERS: ATTEND Nurse Practitioner Family
DX: R06.02 Shortness of breath (principal)
CPT/HCPCS: 71046

== ENCOUNTER → 2020-05-13 | Outpatient (CLI) | payer OTHER ==
[~2020-05-13] MED LIST changes: +RT-ALBUTEROL SULF 2.5 MG/3 ML PRE-MIX VIAL INH ONE
== END ==
LOC: RT 15:30
PROVIDERS: ATTEND Nurse Practitioner Family
DX: R06.02 Shortness of breath (principal)
CPT/HCPCS: 94060; 94726; 94729

== ENCOUNTER → 2020-06-02 | Outpatient (CLI) | payer OTHER ==
[~2020-06-02] MED LIST changes: +ISOS20TA13 PO; -ISOS20TA73 PO; -RT-ALBUTEROL SULF 2.5 MG/3 ML PRE-MIX VIAL INH ONE
--- NOTE | 2020-06-02 13:07 | Diagnostic Imaging Report ---
PROCEDURE: US Venous Lower Ext Colin. TECHNIQUE: Multiple real-time grayscale images were obtained over the lower extremities in various projections, bilaterally. Additional duplex Doppler and color Doppler images were also obtained. INDICATION: Dyspnea. There is no evidence of right or left lower extremity DVT. Both lower extremity deep venous systems show normal compressibility with normal response to augmentation and Valsalva. No fluid collection or mass is detected. IMPRESSION: No evidence of right or left lower extremity DVT. Dictated by: Dictated on workstation # [id number]
[2020-06-02 15:06] LABS: BUN/CREATININE RATIO 25; CREATININE SERUM 0.75 MG/DL (0.60-1.30); GFR ESTIMATED > 60
== END ==
LOC: RAD FS 11:25
PROVIDERS: ATTEND Nurse Practitioner Family
DX: Z03.89 Encounter for observation for other suspected diseases and conditions ruled out (principal); R06.00 Dyspnea, unspecified; M79.609 Pain in unspecified limb; M79.89 Other specified soft tissue disorders
CPT/HCPCS: 36415; 82565; 84520; 93970

== ENCOUNTER 2020-06-05 14:30 | Outpatient (CLI) | payer OTHER | END 2020-06-05 15:45 | disposition home or self-care (01) | LOC: SLEEP 14:30 | PROVIDERS: ATTEND Nurse Practitioner Family | DX: G47.30 Sleep apnea, unspecified (principal); G47.50 Parasomnia, unspecified; G47.10 Hypersomnia, unspecified; E78.00 Pure hypercholesterolemia, unspecified; I10 Essential (primary) hypertension; J30.9 Allergic rhinitis, unspecified; F17.201 Nicotine dependence, unspecified, in remission; Z86.19 Personal history of other infectious and parasitic diseases | CPT/HCPCS: G0399 ==

== ENCOUNTER → 2020-06-09 | Outpatient (CLI) | payer OTHER ==
[~2020-06-09] MED LIST changes: +CATHETER FLUSH 10 ML SYR IV PRN; +HOLD METFORMIN - RECEIVED CONTRAST 20 ML VIAL IV SCH; +IOHEXOL 350 MG/ML 150 ML (OMNIPAQUE 350) VIAL IV ONE; +NS 100 ML (IVPB) BAG IV ONE
--- NOTE | 2020-06-09 15:23 | Diagnostic Imaging Report ---
PROCEDURE: CT angiography of the chest with contrast. TECHNIQUE: Multiple contiguous axial images were obtained through the chest after uneventful bolus administration of intravenous contrast. 3D reconstructed CTA MIP acquisitions were also performed. Auto Exposure Controls were utilized during the CT exam to meet ALARA standards for radiation dose reduction. INDICATION: Headache. INDICATION: Shortness of breath. COMPARISON: 11/02/2019. FINDINGS: There are no intraluminal pulmonary arterial filling defects. There are no pulmonary arterial emboli. The thoracic aorta is patent and nonaneurysmal. There is no pleural or pericardial effusion. There is some minimal subpleural groundglass density in the left lower lobe laterally, likely some partial atelectasis. No convincing evidence for pneumonia or edema. No acute chest wall pathology. No lymphadenopathy. The upper abdomen shows a fatty liver with no acute appearing pathology. IMPRESSION: 1. Negative for PE or acute aortic disease. 2. Minimal left lower lobe subpleural groundglass densities, probably partial atelectasis and less likely infectious disease. 3. Fatty liver. No convincing evidence for an acute abnormality. Dictated by: Dictated on workstation # [id number]
== END ==
LOC: RAD FS 14:18
PROVIDERS: ATTEND Nurse Practitioner Family
DX: Z03.89 Encounter for observation for other suspected diseases and conditions ruled out (principal); R06.00 Dyspnea, unspecified; M79.609 Pain in unspecified limb; M79.89 Other specified soft tissue disorders; K76.0 Fatty (change of) liver, not elsewhere classified
CPT/HCPCS: 71275

== ENCOUNTER → 2020-07-28 | Outpatient (CLI) | payer OTHER ==
[~2020-07-28] MED LIST changes: -CATHETER FLUSH 10 ML SYR IV PRN; -HOLD METFORMIN - RECEIVED CONTRAST 20 ML VIAL IV SCH; -IOHEXOL 350 MG/ML 150 ML (OMNIPAQUE 350) VIAL IV ONE; -NS 100 ML (IVPB) BAG IV ONE
[2020-07-28 09:49] LABS: BASOPHILS # (AUTO) 0.1 10^3/uL (0.0-0.1); BASOPHILS % (AUTO) 1 % (0-10); EOSINOPHILS # (AUTO) 0.3 10^3/uL (0.0-0.3); EOSINOPHILS % (AUTO) 3 % (0-10); HEMATOCRIT 42 % (35-52); LYMPHOCYTES # (AUTO) 2.3 10^3/uL (1.0-4.0); LYMPHOCYTES % (AUTO) 22 % (12-44); MEAN CORPUSCULAR HEMOGLOBIN 30 pg (25-34); MEAN CORPUSCULAR HGB CONC 33 g/dL (32-36); MEAN CORPUSCULAR VOLUME 90 fL (80-99); MEAN PLATELET VOLUME 9.9 fL (9.0-12.2); MONOCYTES # (AUTO) 0.7 10^3/uL (0.0-1.0); MONOCYTES % (AUTO) 7 % (0-12); NEUTROPHILS # (AUTO) 6.8 10^3/uL (1.8-7.8); NEUTROPHILS % (AUTO) 67 % (42-75); PLATELET COUNT 432 10^3/uL (130-400); WHITE BLOOD COUNT 10.2 10^3/uL (4.3-11.0)
== END ==
LOC: ONC 09:28
PROVIDERS: ATTEND Internal Medicine Hematology & Oncology
DX: Z12.31 Encounter for screening mammogram for malignant neoplasm of breast (principal); Z12.11 Encounter for screening for malignant neoplasm of colon; D47.3 Essential (hemorrhagic) thrombocythemia; I10 Essential (primary) hypertension; E78.00 Pure hypercholesterolemia, unspecified
CPT/HCPCS: 85025; G0463; 99213

== ENCOUNTER → 2020-07-30 | Outpatient (CLI) | payer OTHER ==
--- NOTE | 2020-07-31 10:35 | Diagnostic Imaging Report ---
INDICATION: Routine screening. COMPARISON: 08/13/2016. TECHNIQUE: 2D and 3D bilateral screening mammography was performed with CAD. FINDINGS: Both breasts are heterogeneously dense, limiting the sensitivity of mammography. The fibronodular parenchymal pattern appears to be fairly stable. No spiculated mass or malignant appearing microcalcifications are seen. The axillae are unremarkable. IMPRESSION: No mammographic features suspicious for malignancy are identified. ACR BI-RADS Category 2: Benign findings. Result letter will be mailed to the patient. Note: At least 10% of breast cancer is not imaged by mammography. Dictated by: Dictated on workstation # [id number]
== END ==
LOC: RAD 14:15
PROVIDERS: ATTEND Internal Medicine Hematology & Oncology
DX: Z12.31 Encounter for screening mammogram for malignant neoplasm of breast (principal)
CPT/HCPCS: 77063; 77067

== ENCOUNTER → 2021-03-02 | Outpatient (CLI) | payer OTHER ==
[2021-03-02 14:18] LABS: BASOPHILS % (AUTO) 0 % (0-10); EOSINOPHILS # (AUTO) 0.2 10^3/uL (0.0-0.3); EOSINOPHILS % (AUTO) 2 % (0-10); HEMATOCRIT 40 % (35-52); HEMOGLOBIN 13.7 g/dL (11.5-16.0); LYMPHOCYTES # (AUTO) 2.6 10^3/uL (1.0-4.0); LYMPHOCYTES % (AUTO) 35 % (12-44); MEAN CORPUSCULAR HEMOGLOBIN 30 pg (25-34); MEAN CORPUSCULAR HGB CONC 34 g/dL (32-36); MEAN CORPUSCULAR VOLUME 90 fL (80-99); MEAN PLATELET VOLUME 9.6 fL (9.0-12.2); MONOCYTES # (AUTO) 0.6 10^3/uL (0.0-1.0); MONOCYTES % (AUTO) 8 % (0-12); NEUTROPHILS % (AUTO) 54 % (42-75); PLATELET COUNT 387 10^3/uL (130-400); WHITE BLOOD COUNT 7.4 10^3/uL (4.3-11.0)
== END ==
LOC: ONC 14:03
PROVIDERS: ATTEND Internal Medicine Hematology & Oncology
DX: Z12.31 Encounter for screening mammogram for malignant neoplasm of breast (principal); Z12.11 Encounter for screening for malignant neoplasm of colon; D75.839 Thrombocytosis, unspecified; I10 Essential (primary) hypertension; E78.00 Pure hypercholesterolemia, unspecified; E66.9 Obesity, unspecified
CPT/HCPCS: 85025; G0463; 99213